=== PATIENT | female | born 1995 | race Caucasian/White ===

== ENCOUNTER → 2020-09-05 14:56 | Outpatient (BNVA) | payer MEDICARE, MEDICAID, SELFPAY | PROVIDERS: Visit Provider Obstetrics & Gynecology | DX: Z76.89 Persons encountering health services in other specified circumstances (principal) | CPT/HCPCS: Q3014 ==

== ENCOUNTER 2020-11-14 08:44 | Outpatient (REF) | payer MEDICARE, MEDICAID, SELFPAY ==
[2020-11-14 11:12] LABS: HCG Quantitative < 2 mIU/mL
[2020-11-14 11:35] LABS: Syphilis Screen Nonreactive (Nonreactive)
[2020-11-14 11:40] LABS: HBc Num1 0.09 S/CO (0.00-0.79); HIV AB/AG Nonreactive (Nonreactive); HIV Num 1 0.08 S/CO (0.00-0.99); Hepatitis B Core Antibody Nonreactive (Nonreactive); ~HepC Num1 0.55 S/CO (0.00-0.79); ~Hepatitis C Antibody Nonreactive (Nonreactive)
[2020-11-14 12:27] LABS: Hepatitis B Surface Antigen Negative (Negative); ~Hepatitis B Surface Antibody NONREACTIVE (Nonreactive)
[2020-11-14 12:46] LABS: HBS Num1 4.06 mIU/mL (0-7.99); HBsAGNum1 0.38 S/CO (0.00-0.99)
== END 2020-11-14 08:45 | disposition home or self-care (01) ==
LOC: HO.WFDLDS 08:44
PROVIDERS: Visit Provider Family Medicine
DX: Z01.84 Encounter for antibody response examination (principal); Z11.3 Encounter for screening for infections with a predominantly sexual mode of transmission; Z11.4 Encounter for screening for human immunodeficiency virus [HIV]; N92.6 Irregular menstruation, unspecified; R35.0 Frequency of micturition
CPT/HCPCS: 36415; 84702; 86704; 86706; 86780; 86803; 87086; 87340; 87389